=== PATIENT | female | born 1935 | race Caucasian/White ===

== ENCOUNTER 2018-08-20 08:34 | Day surgery (SDC) | payer OTHER, MEDICARE | END 2018-08-20 12:00 | disposition home or self-care (01) | LOC: FASU-ENDO 08:34 ==

== ENCOUNTER 2020-08-12 07:43 | Day surgery (SDC) | payer OTHER, MEDICARE ==
[2020-08-11 11:30] VITALS: BMI 21.6
[2020-08-12] MEDS ORDERED: LIDOCAINE HCL/PF 2% SDV 5ML VIAL ONE (07:57)
[2020-08-12] MEDS ORDERED: PROPOFOL 20 ML ONE (07:57)
[2020-08-12 10:29] VITALS: TEMP 98
[2020-08-12 10:31] VITALS: BP 105/77; PULSE 77
== END 2020-08-12 10:30 | disposition home or self-care (01) ==
LOC: FASU-ENDO 07:43
PROVIDERS: ATTEND Internal Medicine Gastroenterology
PROC: 0DB68ZX Excision of Stomach, Via Natural or Artificial Opening Endoscopic, Diagnostic (ICD-10-PCS; 2020-08-12)
PROC: 0DB98ZX Excision of Duodenum, Via Natural or Artificial Opening Endoscopic, Diagnostic (ICD-10-PCS; principal; 2020-08-12 09:33)
DX: K29.80 Duodenitis without bleeding (principal); K29.50 Unspecified chronic gastritis without bleeding; K31.7 Polyp of stomach and duodenum; R10.13 Epigastric pain; R63.4 Abnormal weight loss; R12 Heartburn
CPT/HCPCS: 82962; 88305-TC; 88342-TC